=== PATIENT | male | born 1960 | race Caucasian/White ===

== ENCOUNTER 2021-09-17 11:59 | Inpatient (IN) | payer SELFPAY ==
[~2021-09-17] VITALS: Ht 182.9 cm; Wt 101.7 kg
[2021-09-17 12:22] LABS: BASOPHILS % (AUTO) 0.4 % (0.0-5.0); EOSINOPHILS % (AUTO) 8.8 % (0.0-8.0); HEMATOCRIT 43.1 % (42-54); LYMPHOCYTES % (AUTO) 23.3 % (21.0-51.0); MEAN CORPUSCULAR HEMOGLOBIN 29.4 pg (27.0-33.0); MEAN CORPUSCULAR VOLUME 83.9 fL (79-99); MONOCYTES % (AUTO) 12.6 % (3.0-13.0); NEUTROPHILS % (AUTO) 54.6 % (40.0-77.0); PLATELET COUNT (AUTO) 243 K/uL (130-400); RED BLOOD CELL COUNT(AUTO) 5.14 MIL/uL (4.50-6.20); RED CELL DISTRIBUTION WIDTH 12.1 % (11.0-15.5); WHITE BLOOD COUNT (AUTO) 9.7 K/uL (4.8-10.8)
[2021-09-17] MEDS ORDERED: 0.9%NACL 1000ML 1,000 ML IV SCH (12:30)
[2021-09-17 12:38] LABS: CREATININE 1.2 mg/dL (0.5-1.5); POTASSIUM 3.7 mmol/L (3.5-5.1)
[2021-09-17 12:39] LABS: INR 1.02 (0.85-1.15); PROTHROMBIN TIME 11.1 SEC (9.6-11.6)
[2021-09-17 12:40] LABS: PARTIAL THROMBOPLASTIN TIME 27.5 SEC (26.3-35.5)
[2021-09-17 12:42] LABS: ALBUMIN 3.9 g/dL (3.5-5.0); BILIRUBIN,TOTAL 1.1 mg/dL (0.2-1.0); TOTAL PROTEIN, SERUM 7.7 g/dL (6.0-8.3)
[2021-09-17 12:48] LABS: B-TYPE NATRIURETIC PEPTIDE 26 pg/mL (0-100)
[2021-09-17] MEDS ORDERED: IOHEXOL 350 MG/ML 100ML INFUS..BTL IV ONE (13:13)
[2021-09-17 13:27] LABS: APPEARANCE,URINE Clear (CLEAR); BILIRUBIN,URINE Negative (NEGATIVE); COLOR,URINE Yellow (YELLOW); GLUCOSE, URINE (UA) Negative (NEGATIVE); KETONES,URINE Negative (NEGATIVE); LEUKOCYTE ESTERASE ,URINE Negative (NEGATIVE); NITRATE,URINE Negative (NEGATIVE); OCCULT BLOOD,URINE Negative (NEGATIVE); PROTEIN,URINE Negative (NEGATIVE)
[2021-09-17] MEDS ORDERED: ASPIRIN 81MG CHEW TAB PO ONE (16:00)
[2021-09-17] MEDS ORDERED: LABETALOL 20MG VIAL IV PRN (17:00)
[2021-09-17] MEDS: ATORVASTATIN 40 MG TABLET PO SCH (21:49)
[2021-09-18 00:25] VITALS: BP 183/112
[2021-09-18 04:00] VITALS: BP 166/87
[2021-09-18 05:41] LABS: HEMATOCRIT 45.1 % (42-54); MEAN CORPUSCULAR HEMOGLOBIN 28.9 pg (27.0-33.0); MEAN CORPUSCULAR HGB CONC 33.5 g/dL (32.0-36.0); MEAN CORPUSCULAR VOLUME 86.2 fL (79-99); RED BLOOD CELL COUNT(AUTO) 5.23 MIL/uL (4.50-6.20); WHITE BLOOD COUNT (AUTO) 9.8 K/uL (4.8-10.8)
[2021-09-18 05:52] LABS: INR 1.05 (0.85-1.15); PROTHROMBIN TIME 11.4 SEC (9.6-11.6)
[2021-09-18 05:55] LABS: HEMOGLOBIN A1C 5.4 % (4.0-6.0)
[2021-09-18 06:09] LABS: ALBUMIN 3.9 g/dL (3.5-5.0); CREATININE 1.2 mg/dL (0.5-1.5); POTASSIUM 4.2 mmol/L (3.5-5.1); TOTAL PROTEIN, SERUM 7.7 g/dL (6.0-8.3)
[2021-09-18] MEDS ORDERED: GADOTERATE MEGLUMINE 10 MMOL/20 ML VIAL IV ONE (08:08)
[2021-09-18 08:21] VITALS: BP 153/99
[2021-09-18] MEDS: ASPIRIN 81 MG EC TAB PO SCH (09:16)
[2021-09-18] MEDS: FAMOTIDINE 20MG VIAL IV SCH ×2 (09:16→23:17)
[2021-09-18 11:43] VITALS: BP 169/91
[2021-09-18 16:32] VITALS: BP 177/107
[2021-09-18] MEDS ORDERED: LISINOPRIL 10 MG TABLET PO SCH (17:00)
[2021-09-18 20:00] VITALS: BP 147/101
[2021-09-18] MEDS: ATORVASTATIN 40 MG TABLET PO SCH (23:16)
[2021-09-19] VITALS: BP 128/77
[2021-09-19 04:00] VITALS: BP 128/70
[2021-09-19] MEDS: ASPIRIN 81 MG EC TAB PO SCH (08:37)
[2021-09-19 08:44] VITALS: BP 135/77
[2021-09-19] MEDS ORDERED: FAMOTIDINE 20MG TAB PO SCH (09:00)
[2021-09-19] MEDS ORDERED: LISINOPRIL 10 MG TABLET PO SCH (09:00)
[2021-09-19 12:30] VITALS: BP 137/91
[2021-09-19 16:49] VITALS: BP 139/77
[2021-09-19] MEDS ORDERED: ASPI-1005 PO (17:42)
[2021-09-19] MEDS ORDERED: LISI20TA24 PO (17:42)
[2021-09-19] MEDS ORDERED: CLOP75TA14 PO (17:42)
[2021-09-19] MEDS ORDERED: ATOR40TA69 PO (17:42)
[2021-09-19 21:00] VITALS: BP 137/60
[2021-09-20] MEDS ORDERED: ASPIRIN 325MG TAB PO SCH (09:00)
== END 2021-09-19 19:15 | disposition home or self-care (01) | DRG 66 ==
LOC: EDH 11:59 → OBSVTOIN 12:00 → EDHIP 12:00 → 4DH 09-18 00:25
PROVIDERS: ADMIT Internal Medicine; ATTEND Internal Medicine
DX: I63.511 Cerebral infarction due to unspecified occlusion or stenosis of right middle cerebral artery (principal); Z68.30 Body mass index [BMI] 30.0-30.9, adult; I10 Essential (primary) hypertension; G51.0 Bell's palsy; E78.00 Pure hypercholesterolemia, unspecified; E66.9 Obesity, unspecified; R53.1 Weakness; R47.1 Dysarthria and anarthria; J33.8 Other polyp of sinus; R29.702 NIHSS score 2; Z79.899 Other long term (current) drug therapy; Z91.048 Other nonmedicinal substance allergy status
CPT/HCPCS: 36415; 70450; 70496; 70498; 70551; 71045; 80053; 80061; 81003; 82550; 83036; 83721; 83874; 83880; 84484; 85025; 85027; 85610; 85730; 92522; 92610; 93005; 93306; 93356; 97039; G0378; J3490; Q9967